=== PATIENT | female | born 1945 | race Caucasian/White ===

== ENCOUNTER 2022-07-10 06:41 | Outpatient (CLI) | payer MEDICARE, SELFPAY ==
[2022-07-10 07:11] VITALS: BP 171/88; PULSE 88; RESP 18; TEMP 36.1; O2SAT 96
[2022-07-10 07:40] VITALS: BP 181/99; PULSE 94; RESP 18; O2SAT 96
--- NOTE | 2022-07-10 07:41 | P.ORPRC_ITS ---
Procedure Note Date of procedure: 07/10/22 Procedure: SURGEON: Shine Stringer MD [employer] TECHNICIAN: Marichuy Sosa PA-C PREOPERATIVE DIAGNOSIS: Right hip abductor tendinopathy/greater trochanteric bursitis POSTOPERATIVE DIAGNOSIS: Right hip abductor tendinopathy/greater trochanteric bursitis NAME OF OPERATION: Percutaneous tenotomy ANESTHESIA: Local ESTIMATED BLOOD LOSS: 2 mL. COMPLICATIONS: None. SPECIMENS: None. DRAINS: None. PREOPERATIVE ANTIBIOTICS: None INDICATIONS: The patient is a 77-year-old with a history of right hip pain secondary to the above diagnoses. Despite appropriate non operative management, they continue to have symptoms. Operative intervention was recommended. The risks, benefits and expected outcomes were discussed in detail. These included but were not limited to: Infection, bleeding, injury to blood vessel or nerve, venous thromboembolism. All questions were answered to their satisfaction. PROCEDURE: The patient was placed in the lateral decubitus position. The right hip was imaged in the long and short axes with the ultrasound transducer. Normal acoustic landmarks were identified. We then sterilely prepped and draped the skin, and used a sterile probe cover with sterile gel. Local anesthesia was established with 10 mL of a solution containing 2 % lidocaine without epinephrine, 0.5% Marcaine without epinephrine and sodium bicarbonate. An 11 blade was used to incise the skin. The Tenex TX 2 micro tip was used to treat the abductor tendon for a total of 4 minutes and 4 seconds. The incision was Steri-Stripped closed. A dry dressing was applied. Sponge and needle counts were correct x2. The patient tolerated the procedure well. There were no apparent complications. They were discharged to home in satisfactory condition. PLAN: The patient may weightbear as tolerates. Tylenol can be used for pain/discomfort. They may ramp up activity as the hip will allow. They will follow up in the office in 6 weeks to assess their progress.
== END 2022-07-10 08:00 | disposition home or self-care (01) ==
PROVIDERS: PCP Internal Medicine; Visit Provider Orthopaedic Surgery
DX: M70.61 Trochanteric bursitis, right hip (principal); M76.891 Other specified enthesopathies of right lower limb, excluding foot
CPT/HCPCS: 27006; 76942; J3490

== ENCOUNTER 2023-06-02 13:45 | Outpatient (RCR) | payer MEDICARE, SELFPAY ==
--- NOTE | 2023-06-02 16:10 | OT.OPGNE2 ---
OT Outpatient General/Neuro Eval OT Outpatient General/Neuro Eval* Start: 06/02/23 15:50 Freq: Status: Active Protocol: Document 06/02/23 15:55 SMW (Rec: 06/02/23 16:04 SMW Laptop) E-signed By Carmella aRmirez OT OT Outpatient Evaluation Details Type Type Eval Complexity Low Insurance Information Insurance Information Insurance Information Medicare B Outpatient History/Precautions Medical/Functional History Medical History Reviewed Yes Prior Level of Function/Mobility Patient is independent in ADLs , IADLS and mobility without an AD. Social History Type of Dwelling Rambler Home Number of Floors (Floors) 1 Number of Stairs to Enter (Stairs) 2 Lives With: Children Physical Barriers in Home Environment Level, No Step Employment Status Retired Patient Subjective Subjective Patient Subjective I am ready to get this shoulder replaced. It hurts. Assessment Assessment Assessment The patient is a 77 year old female referred to outpatient OT for a RTSA pre-op scheduled for 06/09/23. The patient had a LTSA in October of 2020. The patient lives in her own home with her grandson and daughter currently. She is independent in ADLs, IADLS and mobility. She was educated on post op exercises, one handed ADL techniques, sling management and general TSA information. All questions were answered satisfactorily. Certification Certification Statement I Certify That: Therapy Services Provided, Therapy Plan Established, Therapy Plan Reviewed Certification Information Clinic ID # [id number] Initial Certification Date 06/02/23 Recertification Due Date 06/02/23 Provider Signature Shows Agreement With POC & Medical Necessity Physician Comment/Change Comment or Changes Physician NPI Number #
== END 2023-09-30 23:59 | disposition home or self-care (01) ==
PROVIDERS: PCP Internal Medicine; Visit Provider Orthopaedic Surgery
DX: M19.011 Primary osteoarthritis, right shoulder (principal); M75.101 Unspecified rotator cuff tear or rupture of right shoulder, not specified as traumatic; Z96.611 Presence of right artificial shoulder joint; Z51.89 Encounter for other specified aftercare
CPT/HCPCS: 97165

== ENCOUNTER 2023-06-09 07:37 | Inpatient (IN) | payer MEDICARE, SELFPAY ==
[2023-06-09] VITALS (23 sets, daily range): BP systolic 115–196; BP diastolic 69–106; PULSE 79–119; RESP 16–25; TEMP 36.1–36.7; O2SAT 84–97; BMI 38.7
--- OUTSIDE RECORDS SUMMARY | 2023-06-09 07:41 | XMS_ITS | Clinical Summary ---
Author Name Unknown Organization [facility] Address [place], [place] [address] Care Team Providers Care Senior Procurement Specialist Name Role Phone Jazlyn Torres MD Primary Care Provider [phone] Allergies Active Allergy Reactions Criticality Noted Date Comments Homeopathic Products Shortness Of Breath 2006 Theophylline Intolerance-Can't Take 02/26/2007 Medications Medication Sig Dispensed Refills Start Date End Date Status Inhalational Spacing Device (AEROCHAMBER)Indica tions:COPD (chronic obstructive pulmonary disease) with acute bronchitis (HC) As directed. For home use. 1 Device 0 1 Active albuterol HFA (PROAIR HFA) 90 mcg/actuation inhalerIndications: COPD (chronic obstructive pulmonary disease) with acute bronchitis (HC) Inhale 1-2 Puffs by mouth every 4 hours if needed. 1 Inhaler 11 8 Active albuterol (PROVENTIL) 0.083 % neb solutionIndications :Moderate persistent asthma, uncomplicated INHALE 1 VIAL IN NEBULIZER THREE TIMES DAILY 225 mL 3 1 Active acetaminophen-codei ne (TYLENOL #3) 300-30 mg per tabletIndications:C hronic cough TAKE 1 TABLET BY MOUTH EVERY 6 HOURS NEEDED . DO NOT EXCEED 1 PER 24 HOURS 90 Tablet 0 2 Active fluticasone fyq-kvcyfhgwhxho-bn lanterol (Trelegy Ellipta) 100-62.5-25 mcg inhalerIndications: COPD with chronic bronchitis Inhale 1 Puff by mouth once daily. 3 Each 3 2 Active atorvastatin (LIPITOR) 10 mg tabletIndications:M ixed hyperlipidemia Take 1 Tablet (10 mg) by mouth once daily. 90 Tablet 3 3 Active losartan-hydrochlor othiazide (HYZAAR) 100-12.5 mg tabletIndications:H TN (hypertension) Take 1 Tablet by mouth once daily. 90 Tablet 3 3 Active omeprazole (PRILOSEC) 40 mg Delayed-Release capsuleIndications: Gastroesophageal reflux disease, unspecified whether esophagitis present Take 1 Capsule (40 mg) by mouth once daily. 90 Capsule 3 3 Active codeine-guaiFENesin (ROBITUSSIN AC) 10-100 mg/5 mL liquidIndications:C hronic cough Take 5 mL by mouth every 4 hours if needed for Cough. Max dose 60 mL per 24 hrs. 240 mL 0 3 Active benzonatate (TESSALON) 100 mg capsuleIndications: Chronic cough Take 1 capsule by mouth three times daily as needed for cough 180 Capsule 3 3 Active traZODone (DESYREL) 100 mg tabletIndications:I nsomnia, unspecified type Take 1.5-2 Tablets (150-200 mg) by mouth at bedtime. 180 Tablet 1 3 Active venlafaxine extended release (VENLAFAXINE XR, BRAND-YOURSELF,) 150 mg extended release tabletIndications:R ecurrent major depression in partial remission (HC) Take 1 Tablet (150 mg) by mouth once daily with a meal. 90 Tablet 1 4 Active montelukast (SINGULAIR) 10 mg tabletIndications:C OPD (chronic obstructive pulmonary disease) with acute bronchitis (HC) Take 1 Tablet (10 mg) by mouth once daily. 90 Tablet 3 4 Active celecoxib (CELEBREX) 100 mg capsuleIndications: Osteoarthritis of both knees, unspecified osteoarthritis type Take 1 Capsule (100 mg) by mouth two times daily with meals. 180 Capsule 3 4 Active semaglutide (Ozempic) 1 mg/dose (4 mg/3 mL) penIndications:Pred iabetes Inject 1 mg subcutaneous once weekly. 3 mL 5 4 Active montelukast (SINGULAIR) 10 mg tabletIndications:C OPD (chronic obstructive pulmonary disease) with acute bronchitis (HC) Take 1 Tablet (10 mg) by mouth once daily. 90 Tablet 3 2 06/03/19 24 Discontinu ed(Reorder (E-cancel not sent)) celecoxib (CELEBREX) 100 mg capsuleIndications: Osteoarthritis of both knees, unspecified osteoarthritis type TAKE 1 CAPSULE BY MOUTH TWICE DAILY WITH MEALS 180 Capsule 0 3 06/03/19 24 Discontinu ed(Reorder (E-cancel not sent)) venlafaxine extended release (VENLAFAXINE XR, [employer] PHARMA,) 150 mg extended release tabletIndications:R ecurrent major depression in partial remission (HC) TAKE 1 TABLET BY MOUTH ONCE DAILY WITH A MEAL 90 Tablet 0 3 06/03/19 Discontinu ed(Reorder (E-cancel not sent)) semaglutide (OZEMPIC) 2 mg/3 mL penIndications:Pred iabetes Inject 0.375 mL (0.25 mg) subcutaneous once weekly for 28 days, THEN 0.75 mL (0.5 mg) once weekly for 28 days. 4.5 mL 0 3 05/13/19 Discontinu ed(*Medica tion adjustment ) semaglutide (Ozempic) 1 mg/dose (4 mg/3 mL) penIndications:Pred iabetes Inject 1 mg subcutaneous once weekly. 3 mL 4 05/15/19 Discontinu ed(*Availa bility/For mulary change/Cos t of medication ) semaglutide, weight loss, (Wegovy) 1 mg/0.5 mL penIndications:Clas s 2 severe obesity with serious comorbidity and body mass index (BMI) of 39.0 to 39.9 in adult, unspecified obesity type (HC) Inject 1 mg subcutaneous once weekly. 2 mL 11 4 06/03/19 Discontinu ed(*Medica tion adjustment ) Active Problems Problem Noted Date Diagnosed Date Obesity, morbid 08/21/2022 Chronic cough 07/04/2020 COPD with chronic bronchitis 07/04/2020 Overview: PFT 05/2019: Pre bronchodilator Spirometry: Post bronchodilator Spirometry: FVC 2.08 L (83 %) FVC 2.10 L (+0 % change from Pre) FEV1 1.25 L (67 %) FEV1 1.38 L (+10 % change from Pre) FEV1/FVC: 60 % FEV1/FVC: 65 % Umbilical hernia 07/04/2020 Prediabetes 06/05/2020 Controlled substance agreement signed 08/15/2019 Overview: Tylenol #3, #30/month for chronic cough Tubular adenoma of colon 06/15/2014 Major depression, recurrent 03/24/2011 Hypertension 07/23/2005 Primary osteoarthritis of left shoulder Resolved Problems Problem Noted Date Diagnosed Date Resolved Date Chronic bronchitis with prod uctive mucopurulent cough 08/15/2019 10/17/2020 COPD exacerbation 05/28/2019 06/03/2020 nursing home (current) use of anticoagulants 07/18/2010 06/03/2020 Moderate persistent asthma 0 10/18/2020 Encounters Date Type Department Care Team Description 06/03/2023 1:00 PM BRUSH WASHER Preop Visit [address] [place] [address] Jazlyn Torres MD Preoperative Exam (Right shoulder/06/09/23) 06/03/2023 Orders Only [address] [place] [address] 1 scan: (1-Ord) 06/03/2023 06/03/2023 Travel 05/20/[address] [address] Jazlyn Torres MD Prior Authorization (semaglutide, weight loss, (Wegovy) 1 mg/0.5 mL pen EXCLUDED) 05/14/[address] [place] [address] Jazlyn Torres MD Prior Authorization (semaglutide (Ozempic) 1 mg/dose (4 mg/3 mL) pen (not covered)) 05/08/2023 [address] [place] [address] Jazlyn Torres MD Refill Request (semaglutide (OZEMPIC) 2 mg/3 mL pen) 05/06/2023 Refill [facility] [address] [facility] [place] [address] Jazlyn Torres MD Refill Request (Ozempic (0.25 and 0.5) 2mg/3ml pen) 04/15/2023 Transcribe Orders [facility] [place] [address] Building [facility] [address] [place] [address] Shine Stringer MD 03/23/2023 8:50 AM BRUSH WASHER Office Visit [address] [place] [address] Jazlyn Torres MD Sleep Problem; Flu Shot; Immunization/Injectio n 03/23/20[address] [facility] [place] [address] Jazlyn Torres MD Medication Management (Pharmacy Clarification - Ozempic) 03/23/2023 Travel 03/17/2023 Orders Only [facility] Scanner 1 scan: (1-Ord) LIZET[facility]ERTSON PERIPHERAL ARTERY DISEASE TEST, 03/17/2023 03/12/2023 3:09 PM CDT - 03/12/2023 11:59 PM CDT Hospital Encounter [facility] [address] [facility] [place] [address] Shine Stringer MD Tear of right rotator cuff, unspecified tear extent, unspecified whether traumatic 03/12/2023 Travel 03/11/2023 Refill [facility] [address] [facility] [place] [address] Jazlyn Torres MD Refill Request (Celecoxib, Venlafaxine Extended Release) from Last 3 Months Immunizations Name Administration Dates Next Due COVID-19 vaccine (TapImmune-Bio NTech 30mcg/0.3mL) [place] 06/28/2021,07/14/2020,06/23/2020 Influenza, High-dose Inactivated 03/31/2016,06/2014,03/30/2014 Influenza, IIV3 (Age >=3 years) 02/29/20 13,02/27/2011,03/26/2010,2007,02/17/2007 Influenza, Inactivated AIIV4 (Age 65+ Years) Preserv Free 03/23/2023,02/10/2022,04/23/2021,2019 Influenza, Inactivated IIV3 (Age 65+ Years) Preserv Free 03/16/2019,02/23/2018,04/06/2017 Pneumococcal Poly,23-Valent (Pneumovax) 04/22/2011,03/04/2002,12/17/1992 Pneumococcal conj 13-Valent (Prevnar 13) 02/09/2015 Td (Age >=7 Years) 02/09/2004 Tdap 09/15/2016 Family History Medical History Relation Name Comments Cancer Brother 2 MELANOMA Good Health Daughter 1 Good Health Daughter 2 Cancer Father LUNG Asthma Mother EMPHYSEMA Cancer-breast No Family History Relation Name Status Comments Brother 1 Brother 2 Brother 3 Alive Daughter 1 Alive Daughter 2 Alive Father Maternal Grandfather Maternal Grandmother Mother Paternal Grandfather Paternal Grandmother Sister Social History Tobacco Use Types Packs/Day Years Used Date Smoking Tobacco: Former Cigarettes Q uit: 08/09/1984 Smokeless Tobacco: Never Tobacco Cessation:Counseling Given: Yes Alcohol Use Standard Drinks/Week Comments Yes 0 (1 standard drink = 0.6 oz pure alcohol) OCCASIONAL twice a month glass of wine PHQ-2 Answer Date Recorded PHQ-2 TOTAL SCORE 0 08/20/2022 Social Connections Answer Date Recorded Frequency of Communication with Friends and Fami ly 0 08/20/2022 Financial Resource Strain Answer Date R ecorded Difficulty of Paying Living Expenses 3 08/20/2022 Difficulty of Paying Living Expenses Not on file 08/20/2022 Food Insecurity Answer Date Recorded Worried About Running Out of Food in the Last Ye ar 1 08/20/2022 Transportation Needs Answer Date Record ed Lack of Transportation (Medical) 1 08/20/2022 Housing Stability Answer Date Recorded Unable to Pay for Housing in the Last Year 1 08/20/2022 Sex and Gender Information Value Date Recorded Sex Assigned at Not on file Gender Identity Not on file Sexual Orientation Not on file Obstetrics History Para Term AB IAB SAB Ectopic Multiple Livin g Live Births 2 2 2 Date Outcome GA Total Labor Labor/2nd/3rd Weight Sex Delivery Anes PTL Honey A1 A5 Name Cl in Para Para Last Filed Vital Signs Vital Sign Reading Time Taken Comments Blood Pressure 128/80 06/03/2023 1:03 PM BRUSH WASHER Pulse 77 06/03/2023 1:03 PM BRUSH WASHER Temperature 36.7 ??C (98 ??F) 09/15/2022 1:02 PM CDT Respiratory Rate 18 09/15/2018 11:25 AM CDT Oxygen Saturation 98% 06/03/2023 1:03 PM BRUSH WASHER Inhaled Oxygen Concentration - - Weight 87.1 kg (192 lb) 06/03/2023 1:03 PM BRUSH WASHER Height 150.5 cm (4' 11.25) 06/03/2023 1:[address] Body Mass Index 38.45 06/03/2023 1:03 PM BRUSH WASHER Plan of Treatment Upcoming Encounters Date Type Department Care Team (Late st Contact Info) Description 06/24/2023 2:00 PM BRUSH WASHER Appointment [address] [address] 06/29/2023 1:45 PM BRUSH WASHER Appointment [address] [address] Raina Brizuela, [facility] [address] [place] [address] 07/01/2023 2:15 PM BRUSH WASHER Appointment [address] [address] 07/06/2023 2:00 PM BRUSH WASHER Appointment [address] [address] 07/08/2023 12:30 PM BRUSH WASHER Telemedicine [facility] Andi Gutiérrez Yves [address] [place] [phone] Rangel Padilla, [employer] TE[employer] [address] [place] [id number] 07/08/2023 2:00 PM BRUSH WASHER Appointment [facility] - [address] [place] [address] Health Maintenance Due Date Last Done Comments Zoster (shingles) series for age 50+ (1 of 2) 1994 COVID-19 vaccine series (2022- season) 2023 03/12/2022, 06/28/2021, 07/14/2020, Additional history exists Medicare Wellness for age 65+ 08/20/2023, 08/14/2021, 03/16/2019, Additional history exists Depression screening for age 12+ 08/21/2023 08/20/2022, 08/14/2021, 06/05/2020, Additional history exists BMI (ht and wt on same day) for age 18+ 06/03/2024 06/03/2023, 08/20/2022, 08/14/2021, Additional history exists Tetanus booster 09/15/2026 09/15/2016, 02/09/2004 DEXA/DXA scan for age 65+ Completed 04/22/2011 Pneumococcal series for age 65+ Completed 02/09/2015, 02/09/2015, 04/22/2011, Additional history exists Tdap Completed 09/15/2016 Hepatitis C screening for ag e 18-79 Completed 10/23/2016 Influenza for age 65+ Completed 03/23/2023 , 02/10/2022, 04/23/2021, Additional history exists Procedures Procedure Name Priority Date/Time Associated Diagnosis Comments CBC W PLT NO DIFF Routine 06/03/2023 1:4 4 PM BRUSH WASHER Fatigue, unspecified type BASIC METABOLIC PANEL Routine 06/03/2023 1:44 PM BRUSH WASHER Hypertension EKG 12 LEAD Routine 06/03/2023 12:00 AM BRUSH WASHER Hypertension TSH Routine 03/23/2023 9:57 AM BRUSH WASHER Weight gain HEMOGLOBIN A1C SCREENING Routine 03/23/2023 9:57 AM BRUSH WASHER Prediabetes SCAN-DIAGNOSTIC REPORT 03/17/2023 12:00 AM BRUSH WASHER MR SHOULDER RIGHT WO Routine 03/12/2023 4:19 PM CDT Tear of right rotator cuff, unspecified tear extent, unspecified whether traumatic from Last 3 Months Results * CBC W PLT NO DIFF (06/03/2023 1:44 PM BRUSH WASHER) WHITE BLOOD COUNT 4.7 4.5 - 11.0 thou/cu mm 06/03/2023 1:54 PM [facility] RED BLOOD COUNT 4.50 4.00 - 5.20 mil/cu mm 06/03/2023 1:54 PM [facility] HEMOGLOBIN 13.5 12.0 - 16.0 g/dL 06/03/2023 1:54 PM [facility] HEMATOCRIT 41.7 33.0 - 51.0 % 06/03/2023 1:54 PM [facility] MCV 93 80 - 100 fL 06/03/2023 1:54 PM [facility] MCH 30.0 26.0 - 34.0 pg 06/03/2023 1:54 PM [facility] MCHC 32.4 32.0 - 36.0 g/dL 06/03/2023 1:54 PM [facility] RDW 13.4 11.5 - 15.5 % 06/03/2023 1:54 PM [facility] PLATELET COUNT 160 140 - 440 thou/cu mm 06/03/2023 1:54 PM [facility] MPV 9.4 6.5 - 11.0 fL 06/03/2023 1:54 PM [facility] Blood BLOOD SPECIMEN / Unknown Venipuncture / Unknown 06/03/2023 1:44 PM BRUSH WASHER 06/03/2023 1:44 PM BRUSH WASHER Jazlyn Torres MD HEMATOLOGY [facility] [address] [place] [address] * (ABNORMAL) BASIC METABOLIC PANEL (06/03/2023 1:44 PM BRUSH WASHER) SODIUM 138 136 - 145 mmol/L 06/03/2023 2:10 PM [facility] POTASSIUM 4.3 3.5 - 5.1 mmol/L 06/03/2023 2:10 PM [facility] CHLORIDE 102 98 - 107 mmol/L 06/03/2023 2:10 PM [facility] CO2,TOTAL 29 22 - 29 mmol/L 06/03/2023 2:10 PM [facility] ANION GAP 7 5 - 18 06/03/2023 2:10 PM [facility] GLUCOSE 107(H) 70 - 99 mg/dL 06/03/2023 2:10 PM [facility] CALCIUM 9.8 8.8 - 10.2 mg/dL 06/03/2023 2:10 PM [facility] BUN 20 8 - 23 mg/dL 06/03/2023 2:10 PM [facility] CREATININE 1.05(H) 0.50 - 0.90 mg/dL 06/03/2023 2:10 PM [facility] BUN/CREAT RATIO 19 10 - 20 2:10 PM [facility] eGFR 54(L) >90 mL/min/1.7 3m2 06/03/2023 2:10 PM [facility] Comment:As of 2021, eG FR is calculated by the CKD-EPI creatinine equation without race adjustment. ??eGFR can be influenced by muscle mass, exercise, and diet. ??The reported eGFR is an estimation only and is only applicable if the renal function is stable. Blood BLOOD SPECIMEN / Unknown Venipuncture / Unknown 06/03/2023 1:44 PM BRUSH WASHER 06/03/2023 1:44 PM BRUSH WASHER Jazlyn Torres MD CHEMISTRY [facility] [address] [facility] [place] [address] * EKG 12 LEAD (06/03/2023 12:00 AM BRUSH WASHER) Jazlyn Torres MD EKG ORD * HEMOGLOBIN A1C SCREENING (03/23/2023 9:57 AM BRUSH WASHER) HEMOGLOBIN A1C SCREENING 6.2 <=6.4 % 03/23/2023 10:12 AM BRUSH WASHER [facility] Blood BLOOD SPECIMEN / Unknown Venipuncture / Unknown 03/23/2023 9:57 AM BRUSH WASHER 03/23/2023 9:59 AM BRUSH WASHER [facility] - 03/23/2023 10:12 AM BRUSH WASHER ? (<5.7%) ?Normal ? (5.7% to 6.4%) ? Indicates prediabetes ? (>=6.5%) ? Confirms diabetes Falsely low levels may be seen with: Recent Transfusion, Recent Significant Blood Loss, Hemolytic Diseases, or Falsely elevated levels may be seen with: Untreated Anemias, Splenectomy Jazlyn Torres MD CHEMISTRY [facility] [address] [place] [address] * TSH (03/23/2023 9:57 AM BRUSH WASHER) TSH 2.81 0.27 - 4.20 uIU/mL 03/23/2023 10:30 AM BRUSH WASHER [facility] Blood BLOOD SPECIMEN / Unknown Venipuncture / Unknown 03/23/2023 9:57 AM BRUSH WASHER 03/23/2023 9:59 AM BRUSH WASHER [facility] - 03/23/2023 10:30 AM BRUSH WASHER In Adults, TSH values between 5.00 and 10.00 uIU/ml do not necessarily indicate the presence of Hypothyroidism. Correlation with clinical findings such as presence of goiter and/or Thyroperoxidase (TPO) Antibody may be helpful. For more information please refer to LINDEN 2004; 291: 228-238. Jazlyn Torres MD CHEMISTRY [facility] [address] [place] [address] * SCAN-DIAGNOSTIC REPORT (03/17/2023 12:00 AM BRUSH WASHER) Scanner OTHER * MR SHOULDER RIGHT WO (03/12/2023 4:19 PM CDT) Anatomical Region Laterality Modality SHOULDER R Magnetic Resonan ce 03/13/2023 9:43 AM CDT Impressions 03/13/2023 9:43 AM CDT 1. Large full-thickness rotator cuff tear involving all of the supraspinatus and infraspinatus tendons with severe atrophy and retraction. 2. Advanced degenerative arthritic change of the shoulder joint with degenerative tearing of all portions of the glenoid labrum. There is severe tendinosis of the biceps anchor without disruption. Dictated by Peter Weeks MD @ 03/13/2023 9:43:24 AM (Electronically Signed) Narrative 03/13/2023 9:43 AM CDT For Patients: ??As a result of the Century Cures Act, medical imaging exams and procedure reports are released immediately into your electronic medical record. ??You may view this report before your referring provider. ??If you have questions, please contact your health care provider. HISTORY: Right shoulder pain. TECHNIQUE: Routine shoulder protocol. FINDINGS: Study is limited due to significant motion artifact on all sequences. There is an extensive full-thickness rotator cuff tear involving all of the supraspinatus and infraspinatus tendons with severe atrophy and retraction. There is moderate tendinosis and moderate thinning of the subscapularis tendon. The teres minor is intact. Acromioclavicular joint region: Moderate degenerative change is present. There is a concave, type 2 acromial undersurface. Biceps labral complex and glenohumeral joint: Severe osteoarthritic change is noted with high-grade articular cartilage loss, osteophytes and degenerative cysts. There is diffuse degeneration of the glenoid labrum especially involving the superior labrum where there is fragmentation. There is severe tendinosis of the biceps anchor without disruption or displacement. There is a mild shoulder joint effusion present. Bones and soft tissues: No findings for fracture or tumor. Severe atrophy of the supraspinatus and infraspinatus muscle bellies is noted. Procedure Note Dakota Weeks MD - 03/13/2023 For Patients: As a result of the Cures Act, medical imagingexams and procedure reports are released immediately into your electronicmedical record. You may view this report before your referring provider.If you have questions, please contact your health care provider. HISTORY: Right shoulder pain. TECHNIQUE: Routine shoulder protocol. FINDINGS: Study is limited due to significant motion artifact on all sequences. There is an extensive full-thickness rotator cuff tear involving all ofthe supraspinatus and infraspinatus tendons with severe atrophy andretraction. There is moderate tendinosis and moderate thinning of thesubscapularis tendon. The teres minor is intact. Acromioclavicular joint region: Moderate degenerative change is present.There is a concave, type 2 acromial undersurface. Biceps labral complex and glenohumeral joint: Severe osteoarthritic changeis noted with high-grade articular cartilage loss, osteophytes anddegenerative cysts. There is diffuse degeneration of the glenoid labrumespecially involving the superior labrum where there is fragmentation.There is severe tendinosis of the biceps anchor without disruption ordisplacement. There is a mild shoulder joint effusion present. Bones and soft tissues: No findings for fracture or tumor. Severe atrophyof the supraspinatus and infraspinatus muscle bellies is noted. IMPRESSION: 1. Large full-thickness rotator cuff tear involving all of thesupraspinatus and infraspinatus tendons with severe atrophy andretraction. 2. Advanced degenerative arthritic change of the shoulder joint withdegenerative tearing of all portions of the glenoid labrum. There issevere tendinosis of the biceps anchor without disruption. Dictated by Peter Weeks MD @ 03/13/2023 9:43:24 AM (Electronically Signed) Shine Stringer MD MR from Last 3 Months Advance Directives Documents on File Type Date Recorded Patient Tower Climber Expl anation Healthcare Directive 10/31/2005 10:04 AM M N HEALTH CARE DIRECTIVE, 10/31/2005 Care Teams Senior Procurement Specialist Relationship Specialty Start Date End Date Jazlyn Torres MD [address] [facility] [place] [address] PCP - General Internal Medicine 06/05/20
--- OUTSIDE RECORDS SUMMARY | 2023-06-09 07:41 | XMS_ITS | Clinical Summary ---
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 0 Active Tiotropium [place] Monohydrate (SPIRIVA HANDIHALER IN) Inhale 2 Puffs into the lungs. 0 Active Ipratropium [place] (ATROVENT IN) Inhale into the lungs as needed. 0 Active albuterol (PROVENTIL, VENTOLIN) (2.5 MG/3ML) 0.083% nebulizer solution Take by nebulization. 0 Active omeprazole (PRILOSEC) 40 MG delayed-release capsule Take 40 mg by mouth two times a day before meals. Take before meals. Do not crush. 0 Active losartan-hydrochloroth iazide (HYZAAR) 50-12.5 MG oral tablet Take 1 Tab by mouth. 0 Active TRAZODONE HCL OR Take 150 mg by mouth. 0 Active benzonatate (TESSALON) 100 MG capsule Take 100 mg by mouth two times a day. Swallow capsule whole (do not break or chew). 0 Active montelukast (SINGULAIR) 10 MG tablet Take 10 mg by mouth. 0 Active celecoxib (CELEBREX) 100 MG capsule Take 100 mg by mouth. 0 Active losartan (COZAAR) 50 MG tablet Take 50 mg by mouth one time a day. 0 Active DOXYCYCLINE HYCLATE 100 MG Recon Soln Inject 100 mg into the vein one time. 0 Active nitrofurantoin, macrocrystal-monohydra te, (MACROBID) 100 MG capsule Take 1 Cap by mouth two times a day with meals. 14 Cap 0 12/22/2016 Active Immunizations Name Administration Dates Next Due Tdap (7 years and older) 09/15/2016 Social History Tobacco Use Types Packs/Day Years Used Date Smoking Tobacco: Never Assessed Sex and Gender Information Value Date Recorded Sex Assigned at Not on file Gender Identity Not on file Sexual Orientation Not on file Last Filed Vital Signs Vital Sign Reading Time Taken Comments Blood Pressure 159/93 12/20/2016 1:39 PM CDT Pulse 95 12/20/2016 1:39 PM CDT Temperature 37.1 ??C (98.8 ??F) 12/20/2016 1:39 PM CD T Respiratory Rate 20 12/20/2016 1:39 PM CDT Oxygen Saturation 95% 12/20/2016 1:39 PM CDT Inhaled Oxygen Concentration - - Weight 88.5 kg (195 lb) 12/20/2016 1:39 PM CDT Height 152.4 cm (5') 12/20/2016 1:39 PM CDT Body Mass Index 38.08 12/20/2016 1:39 PM CDT Plan of Treatment Not on file
[2023-06-09] MEDS: LACTATED RINGERS 1000 ML 1,000 ML 100 ML IV ×2 (07:50→09:26)
[2023-06-09] MEDS: ACETAMINOPHEN 500 MG TABLET 1000 MG PO ×3 (08:40→21:12)
[2023-06-09] MEDS: fentaNYL 100 MCG/2 ML inj IVP (08:40)
[2023-06-09] MEDS: OXYCODONE (CR) 10 MG TAB.ER.12H PO (08:40)
[2023-06-09] MEDS: CELECOXIB 200 MG CAPSULE PO (08:40)
[2023-06-09] MEDS: MIDAZOLAM HCL 1 MG/ML inj IVP (08:45)
--- NOTE | 2023-06-09 08:59 | SUR.PREOP ---
TIME?OUT:?0844 PT/RN/MDA?VERIFICATION?OF?SURGICAL?SITE,?PROCEDURE,?AND?CONSENT OBTAINED?PRIOR?TO?INVASIVE?PROCEDURE.
--- NOTE | 2023-06-09 09:17 | W.ANESCHARGE ---
Anesthesia Charges Start Date/Time Anesthesia Start Date: 06/09/23 Anesthesia Start Time: 08:58 Stop Date/Time Anesthesia Stop Date: 06/09/23 Anesthesia Stop Time: 11:24 Summary Extremes of Age - Over 70 or under 1: MDA
--- NOTE | 2023-06-09 09:17 | W.PM.NB ---
Nerve Block Nerve Block Time Seen by Provider: 08:46 Date Seen: 06/09/23 Type of block requested by surgeon for post-operative analgesia: supraclavicular Side: right Time out performed: Yes Verification of patient name: Yes Verification of date of : Yes Site marking: site marked Name of person performing procedure: Beau Assistants, if any: Guero Continuous monitoring Was continuous monitoring of O2 sat, B/P, cardiac nurse specialist, recorded every 15 minutes?: Yes Procedure Checklist: sterile prep, needles and gloves Ultrasound guided. Images saved: Yes Medications given in 5ml increments after negative aspiration: Ropivicaine %: 0.5 mL: 20 Needle gauge: 22 Decadron (mg): 10 Precedex (mcg): 25 Patient tolerated procedure well: Yes Block Charges Block Charge (with Pro Fee): Brachial Plexus Use of Ultrasound Machine for Block: Yes- US Guidance/pain block
[2023-06-09] MEDS: CEFAZOLIN 2 GM INJ IVP (09:20)
[2023-06-09] MEDS: TRANEXAMIC ACID 100 MG/ML INJ 1000 MG IV (09:20)
--- NOTE | 2023-06-09 10:44 | CRLHL7_ITS ---
For Patients: As a result of the Cures Act, medical imaging exams and procedure reports are released immediately into your electronic medical record. You may view this report before your referring provider. If you have questions, please contact your health care provider. INDICATION: Post right shoulder arthroplasty. TECHNIQUE: Two portable views of the right shoulder. COMPARISON: None. FINDINGS: Immediate postop changes of right shoulder arthroplasty. Prosthetic components well-seated and aligned. IMPRESSION: Immediate postop changes of right shoulder arthroplasty without evidence of complication. Dictated by Florentin Aguilar MD @ 06/09/2023 3:13:53 PM (Electronically Signed)
--- NOTE | 2023-06-09 10:46 | P.ORPRC_ITS ---
Procedure Note Date of procedure: 06/09/23 Procedure: PREOPERATIVE DIAGNOSIS: Right shoulder rotator cuff tear arthropathy POSTOPERATIVE DIAGNOSIS: Right shoulder rotator cuff tear arthropathy NAME OF OPERATION: Right upper extremity reverse shoulder arthroplasty SURGEON: Shine Stringer MD PROVIDER RELATIONS COORDINATOR: Marichuy Sosa PA-C, SADA Crowe ANESTHESIA: General endotracheal ESTIMATED BLOOD LOSS: 50 mL COMPLICATIONS: None SPECIMENS: None DRAINS: None PREOPERATIVE ANTIBIOTICS: Ancef 2 grams IMPLANTS: 1. Tornier 25mm x 30mm baseplate 2. 36mm standard glenosphere 3. 4B humeral stem 4. Low eccentric +0 humeral tray 5. 36mm +6 polyethylene INDICATIONS: The patient is a 77-year-old with a longstanding history of severe, unrelenting right shoulder pain secondary to rotator cuff tear arthropathy. Despite appropriate nonoperative management, including activity modification, anti-inflammatories, [id number] pain medication, physical therapy, and injections they continue to have pain and disability. Operative intervention was offered. The risks, benefits and expected outcomes were discussed in detail. These included but were not limited to: Infection, bleeding, injury to blood vessel or nerve, venous thromboembolism. All questions were answered to their satisfaction. Use of an compounding assistant was necessary throughout the case for patient positioning and safety, soft tissue retraction, and closure. PROCEDURE: General anesthesia was administered. The patient was placed in the lazy beach chair position on the operating room table. The right upper extremity was prepped and draped in the usual sterile fashion. A standard deltopectoral incision was made. Subcutaneous dissection was taken with electrocautery to the deltopectoral interval. The cephalic vein was mobilized, lateral branches were cauterized. The vein was taken medially with the pectoralis. We bluntly entered the deltopectoral interval. We freed up the deltoid. The upper 1/3 of the insertion of the pectoralis was divided with cautery. The static retractor was placed. The clavipectoral fascia and CA ligament were divided. The circumflex vessels were controlled with electrocautery. The biceps was dissected out of the bicipital groove, was tagged with a #2 FiberWire suture and divided proximally. Two fiberWire sutures were placed in the subscapularis. The subscap was subperiosteally elevated off of the lesser tuberosity. The humeral head was delivered into the wound. The intramedullary humeral cutting guide was placed. We made the cut at the anatomic neck, in 30? of retroversion. Humeral sounds were used to assess the diameter of the canal. The broach was placed and had good rotational stability. The calcar reamer was used and the protective base plate cover was placed. Attention was then turned to the glenoid. Hohmann retractors were placed po steriorly. The labrum and biceps stump were sharply debrided. The origin of the inferior glenohumeral ligaments were subperiosteally released off of the glenoid. The drill guide was placed. The guide pin was placed in 0? of cephalic tilt. The reamer was used to bleeding bone. The central drill was used x2. The tap was used. The standard base plate was placed. This had excellent purchase. L ocking screws were placed. The glenosphere was placed, the set screw was tightened. Attention then returned to the humerus. We placed a low eccentric standard base plate and standard poly. We reduced the shoulder and took it through a range of motion. It was found to be stable with appropriate soft tissue tension. Trial humeral components were removed. The biceps was tenodesed in the bicipital groove with drill holes and our previously placed FiberWire suture. We placed #2 FiberWire sutures in the lesser tuberosity for subsequent subscap repair. We assembled the humeral component on the back table. We placed it in the center of our subscapularis repair sutures and tapped it down to our humeral cut. This had excellent purchase. The shoulder was reduced and again was found to be stab le with appropriate soft tissue tension. We did a 3 min dilute Betadine solution soak. We irrigated the wound with 3 L of normal saline via pulse lavage. We repaired the subscapularis to the lesser tuberosity with our previously placed FiberWire sutures. The deltopectoral interval was loosely reapproximated with an 0 Vicryl in an interrupted [id number] fashion. Subcutaneous tissues were closed with the 2-0 Vicryl and a running 3-0 Monocryl suture. The skin was sealed with glue. A dry dressing and sling were applied. Sponge and needle counts were correct x2. The patient tolerated the procedure well, there were no apparent complications. They were awakened and extubated in the operating room, taken to the postanesthesia care unit in satisfactory condition. PLAN: The patient will be mobilized with physical therapy. The sling will be used for 6 weeks postoperatively. Active range of motion in forward flexion and abduction as tolerates. No external rotation greater than 0? for 6 weeks postoperatively. They will be discharged to home once medically appropriate.
--- NOTE | 2023-06-09 13:27 | W.ANESCHARGE ---
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
[2023-06-09] MEDS: LACTATED RINGERS 1000 ML 1,000 ML 75 ML IV (13:45)
[2023-06-09] MEDS: CEFAZOLIN 2 GM in 0.9 % SODIUM CHLORIDE Mini-bag 100 ML IVPB (17:55)
[2023-06-09] MEDS: OXYCODONE 5 MG TABLET PO (21:06)
[2023-06-09] MEDS: SENNOSIDES 1 TAB TABLET 2 TAB PO (21:06)
[2023-06-09] MEDS: MONTELUKAST 10 MG TABLET PO (21:07)
[2023-06-09] MEDS: ATORVASTATIN 10 MG TABLET PO (21:07)
--- NOTE | 2023-06-09 23:17 | PM.IMCN1 ---
Date of Consult Patient: Chaim Patient Consult date: 06/09/23 Requesting Physician: Orthopedics Primary Care Provider: Jazlyn Torres MD Consult Narrative Reason for consult: s/p right reverse total shoulder arthroplasty, medical care Narrative: Valery Garcia is a 77 year old woman undergoes elective right reverse total shoulder arthroplasty today due to severe symptomatic arthritis. Estimated blood loss 50 mL. No apparent complications. I reviewed the preoperative assessment. She has not had any problems or complications since then. Review of Systems Status of ROS: Reports: 10 or more systems reviewed and unremarkable except as noted in History and below PFSH PFS Medical History (Updated 06/09/23 @ 23:22 by Stuart Johnson MD) Depression ?F32.A - Depression, unspecified (ICD-10) Skin problem ?L98.9 - Disorder of the skin and subcutaneous tissue, unspecified (ICD-10) Arthritis ?M19.90 - Unspecified osteoarthritis, unspecified site (ICD-10) Incontinence of urine ?R32 - Unspecified urinary incontinence (ICD-10) GERD (gastroesophageal reflux disease) ?K21.9 - Gastro-esophageal reflux disease without esophagitis (ICD-10) Elevated cholesterol ?E78.00 - Pure hypercholesterolemia, unspecified (ICD-10) High blood pressure ?I10 - Essential (primary) hypertension (ICD-10) Sleep apnea ?G47.30 - Sleep apnea, unspecified (ICD-10) COPD (chronic obstructive pulmonary disease) ?J44.9 - Chronic obstructive pulmonary disease, unspecified (ICD-10) Asthma ?J45.909 - Unspecified asthma, uncomplicated (ICD-10) Surgical History (Updated 06/09/23 @ 23:22 by Stuart Johnson MD) History of Tara fundoplication ?Z98.890 - Other specified postprocedural states (ICD-10) History of carpal tunnel surgery of right wrist ?Z98.890 - Other specified postprocedural states (ICD-10) Status post hip surgery (07/10/22) ?Z98.890 - Other specified postprocedural states (ICD-10) S/P left knee arthroscopy (10/19/96) ?Z98.890 - Other specified postprocedural states (ICD-10) History of arthroscopy of left shoulder (03/28/99) ?Z98.890 - Other specified postprocedural states (ICD-10) Status post total left knee replacement (11/05/05) ?Z96.652 - Presence of left artificial knee joint (ICD-10) S/P right knee arthroscopy (08/16/02) ?Z98.890 - Other specified postprocedural states (ICD-10) Status post total right knee replacement (07/16/10) ?Z96.651 - Presence of right artificial knee joint (ICD-10) History of carpal tunnel surgery of left wrist (06/27/14) ?Z98.890 - Other specified postprocedural states (ICD-10) History of breast biopsy ?Z98.890 - Other specified postprocedural states (ICD-10) 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) ?Z96.612 - Presence of left artificial shoulder joint (ICD-10) Family History Brother Diabetes Heart problem High blood pressure Mother COPD (chronic obstructive pulmonary disease) Social History Narrative: Marital Status: Occupation: retired [employer] Alcohol Use: Yes (once a week) Recreational Drug Use: No What is your current living situation?: I presently have a place to live Problems where you live: no known problems Problems where you live details: none In the past 12 months, utilities in danger of being shut off: no In past 12 months, lack of transportation kept you from medical appts, meetings, work, or getting things needed for daily living: no In the past 12 mos, have been you worried that your food would run out before you had money to buy more?: never true In the past 12 mos, the food you bought just didn't last and you didn't have money to buy more?: never true Smoking Status: Former smoker What tobacco products do you use: cigarettes Smoking quit date/years: >15 years ago Do you use any of these nicotine containing products: None Second hand tobacco smoke exposure: No How often do you have a drink containing alcohol: monthly or less Alcohol type: beer How many standard drinks containing alcohol do you have on a typical day: 1 or 2 How often do you have six or more drinks on one occasion: Never AUDIT-C Alcohol total score: 1 Non-prescribed substance use: denies use Caffeine: Yes How often does anyone, including family, friends and others, physically hurt you: never How often does anyone, including family, friends and others, insult or talk down to you: never How often does anyone, including family, friends and others, threaten you with harm: never How often does anyone, including family, friends and others, scream or curse at you: never service: No Meds Home Medications and Allergies Home Medications Medication Instructions Recorded Confirmed Type albuterol 90 mcg/actuation aerosol 2 spray inhalation Q4H PRN 12/04/21 06/09/23 History inhaler atorvastatin 10 mg tablet 10 mg PO .Bedtime 12/04/21 06/09/23 History benzonatate 100 mg capsule 100 mg PO Q8H PRN 12/04/21 06/09/23 History celecoxib 100 mg capsule 100 mg PO BID 12/04/21 06/09/23 History fluticasone fur. 100 mcg-umeclid 1 inh inhalation DAILY 12/04/21 06/09/23 History 62.5 mcg-vilant 25 mcg inhalat.powder losartan 100 1 tab PO DAILY 12/04/21 06/09/23 History mg-hydrochlorothiazide 12.5 mg tablet montelukast 10 mg tablet 10 mg PO .Bedtime 12/04/21 06/09/23 History omeprazole 40 mg capsule,delayed 40 mg PO DAILY 12/04/21 06/09/23 History release trazodone 100 mg tablet 150 - 200 mg PO .Bedtime 12/04/21 06/09/23 History venlafaxine 150 mg tablet,extended 150 mg PO DAILY 12/04/21 06/09/23 History release 24 hr acetaminophen 500 mg oral powder 500 mg PO Q6H PRN 08/20/22 06/09/23 History packet (Tylenol Extra Strength) semaglutide 1 mg/dose (4 mg/3 mL) 1 mg subcut QWEEK 06/09/23 06/09/23 History subcutaneous pen injector (Ozempic) Allergies Allergy/AdvReac Type Severity Reaction Status Date / Time theophylline Allergy Severe Nausea Verified 06/09/23 07:57 environmental Allergy Unknown Uncoded 03/18/23 10:54 HOMEOPATHIC PRODUCTS Allergy Unknown Uncoded 03/18/23 10:54 Exam Narrative: Exam Narrative: I examined the patient in her hospital room. Appears comfortable no acute distress. Vision and hearing are adequate. Alert, oriented to self, place, time, situation. From the, articulate, cooperative. Lungs are clear to auscultation. Heart tones with regular rhythm. Abdomen with active bowel sounds, soft, nontender. Already moves her fingers on the affected right side. No focal motor neurologic deficits. Const: Vital Signs, click to edit/add: Vital Signs - 24 hr 06/09/23 08:40 06/09/23 08:45 06/09/23 08:50 Temperature 98.0 F Pulse Rate 79 79 81 Pulse Rate [Pulse Oximeter] Respiratory Rate 16 16 16 Blood Pressure 177/89 H 177/90 H 165/77 H Blood Pressure [Le ft Arm] Pulse Oximetry 95 95 92 Oxygen Delivery Me thod Room Air Nasal Cannula Nasal Cannula Oxygen Flow Rate 2 2 06/09/23 11:20 06/09/23 11:25 06/09/23 11:30 Temperature 97.2 F L Pulse Rate 118 H 117 H 119 H Pulse Rate [Pulse Oximeter] Respiratory Rate 20 22 25 H Blood Pressure 115/86 165/85 H 168/95 H Blood Pressure [Le ft Arm] Pulse Oximetry 95 95 93 Oxygen Delivery Me thod Nasal Cannula Oxygen Flow Rate 3 06/09/23 11:35 06/09/23 11:40 06/09/23 11:45 Temperature Pulse Rate 113 H 109 H 112 H Pulse Rate [Pulse Oximeter] Respiratory Rate 18 18 18 Blood Pressure 182/89 H 157/95 H 151/71 H Blood Pressure [Le ft Arm] Pulse Oximetry 94 94 94 Oxygen Delivery Me thod Oxygen Flow Rate 06/09/23 11:50 06/09/23 11:55 06/09/23 11:55 Temperature 97.3 F L 97.0 F L 97.0 F L Pulse Rate 112 H 110 H Pulse Rate [Pulse Oximeter] 104 H Respiratory Rate 20 18 18 Blood Pressure 162/69 H Blood Pressure [Le ft Arm] 154/89 H 154/89 H Pulse Oximetry 93 93 Oxygen Delivery Me thod Nasal Cannula Room Air Room Air Oxygen Flow Rate 3 06/09/23 12:19 06/09/23 12:30 06/09/23 12:46 Temperature 97.0 F L 97.0 F L Pulse Rate Pulse Rate [Pulse Oximeter] 105 H 104 H 104 H Respiratory Rate 18 18 18 Blood Pressure Blood Pressure [Le ft Arm] 132/75 141/84 H 156/82 H Pulse Oximetry 84 L 92 92 Oxygen Delivery Me thod Room Air Room Air Nasal Cannula Oxygen Flow Rate 1 1 06/09/23 13:15 06/09/23 13:30 06/09/23 14:00 Temperature Pulse Rate Pulse Rate [Pulse Oximeter] 104 H 101 H 100 Respiratory Rate 18 18 18 Blood Pressure Blood Pressure [Le ft Arm] 151/79 H 149/89 H 134/93 H Pulse Oximetry 93 93 94 Oxygen Delivery Me thod Nasal Cannula Nasal Cannula Nasal Cannula Oxygen Flow Rate 1 1 1 06/09/23 14:31 06/09/23 15:00 06/09/23 15:30 Temperature 97.5 F L Pulse Rate Pulse Rate [Pulse Oximeter] 97 103 H Respiratory Rate 18 18 18 Blood Pressure Blood Pressure [Le ft Arm] 139/82 142/86 H Pulse Oximetry 93 94 Oxygen Delivery Me thod Nasal Cannula Nasal Cannula Oxygen Flow Rate 1 1 06/09/23 16:30 06/09/23 17:30 Temperature 97.2 F L Pulse Rate Pulse Rate [Pulse Oximeter] 107 H 106 H Respiratory Rate 18 18 Blood Pressure Blood Pressure [Le ft Arm] 140/83 H 176/106 H Pulse Oximetry 94 92 Oxygen Delivery Me thod Nasal Cannula Nasal Cannula Oxygen Flow Rate 1 1 Assessment and Plan Assessment and plan (1) Osteoarthritis of right shoulder: Status: Acute (2) Status post reverse total replacement of right shoulder: Problem comment: 06/09/2023, Dr. Stringer Status: Acute (3) Status post reverse total replacement of left shoulder: Problem comment: 10/30/2020, Dr. Stringer Status: Acute (4) High blood pressure: Problem comment: Will resume her antihypertensive medications. Status: Acute (5) Elevated cholesterol: Problem comment: Will resume her lipid-lowering medications. Status: Acute Plan 1. Reviewed impression with patient. 2. Will follow with Orthopedic surgery while they deemed the patient needs to be in the hospital. 3. Completed hospitalist portion of discharge order. 4. Patient agreeable with above stated plan recommendations.
--- NOTE | 2023-06-09 23:56 | PC.NURSE ---
Shift Note: Pt friendly and cooperative, BP's hypertensive, but VS otherwise WNL. Afebrile. Pain 3/10 and well controlled with Tylenol and PRN Oxy at HS. Surgical dressing to right shoulder C,D,&I with active ice as tolerated. Radial pulse intact, cap refill less than 3 seconds, and fingers of right hand warm to touch. Moving well with assist x1 and needed minimal assistance with ADL's.
[2023-06-10] MEDS: CEFAZOLIN 2 GM in 0.9 % SODIUM CHLORIDE Mini-bag 100 ML IVPB (00:29)
[2023-06-10] MEDS: OXYCODONE 5 MG TABLET PO ×2 (01:57→08:05)
--- NOTE | 2023-06-10 06:46 | PC.NURSE ---
End of shift report [id number]: Pleasant and cooperative with cares. Pain to right shoulder well managed with scheduled and prn medications as well as ice and sling for positioning. Transfers and ambulates with SBA. O2 at 1L per NC overnight to maintain sats >90%, per patient she believes she has sleep apnea and has an appointment for a sleep study scheduled.
[2023-06-10] MEDS: OMEPRAZOLE 20 MG CAPSULE DR 40 MG PO (06:57)
[2023-06-10 07:00] VITALS: BP 161/81; PULSE 88; PULSE 96; RESP 20; TEMP 35.8; O2SAT 96
[2023-06-10 07:26] LABS: Hematocrit 34.7 % (33.0-51.0); Hemoglobin* 11.2 gm/dL (12.0-16.0); Mean Corpuscular HGB Conc 32 gm/dL (32-36); Mean Corpuscular Hemoglobin 30 pg (26-34); Mean Corpuscular Volume 93 fL (80-100); Platelet Count* 168 K/uL (140-440); Red Blood Count 3.74 m/uL (4.00-5.20); White Blood Count* 8.08 K/uL (4.50-11.00)
[2023-06-10 07:37] LABS: Slide Review Reflex No
[2023-06-10 07:41] LABS: Potassium* 4.2 mmol/L (3.6-5.1); Sodium* 137 mmol/L (135-149)
[2023-06-10 07:44] LABS: Blood Urea Nitrogen* 21 mg/dL (7-30); Creatinine* 0.9 mg/dL (0.5-1.5); Est. Creatinine Clearance* 62.72; Estimated Glomerular Filt Rate 65 ml/min
[2023-06-10] MEDS: SENNOSIDES 1 TAB TABLET 2 TAB PO (08:03)
[2023-06-10] MEDS: hydroCHLOROthiazide 12.5 MG CAPSULE PO (08:04)
[2023-06-10] MEDS: LOSARTAN POTASSIUM 50 MG TABLET 100 MG PO (08:04)
[2023-06-10] MEDS: VENLAFAXINE ER 75 MG CAPSULE 150 MG PO (08:04)
[2023-06-10] MEDS: ACETAMINOPHEN 500 MG TABLET 1000 MG PO (08:04)
--- NOTE | 2023-06-10 08:25 | PM.ORPN ---
Subjective Subjective Time Seen by Provider: 07:10 Date Seen: 06/10/23 Principal diagnosis: Status post right reverse shoulder replacement Interval history: Jacqui is comfortable this morning. She does not have pain in her right shoulder. She is able to move her fingers and wrist and has normal sensation in her fingers this morning. She is in a sling. Ice pack is applied. She will discharge to home today. Ortho Exam Narrative Exam Narrative: Alert and oriented x3. Patient is in no acute distress. Converses without labored breathing. Hearing is grossly intact. Ambulates with a normal gait. Examination the right upper extremity shows ecchymosis is present. The dressing is intact. No erythema or drainage or sign of infection. Very minimal soft tissue edema about the right shoulder. She is able to flex and extend her fingers, extend and flex her wrist. Sensation is normal in her fingers. Const Vital Signs, click to edit/add: Vital Signs - 24 hr 06/09/23 08:40 06/09/23 08:45 06/09/23 08:50 Temperature 98.0 F Pulse Rate 79 79 81 Pulse Rate [Pulse Oximeter] Respiratory Rate 16 16 16 Blood Pressure 177/89 H 177/90 H 165/77 H Blood Pressure [Left Arm] Pulse Oximetry 95 95 92 Oxygen Delivery Method Room Air Nasal Cannula Nasal Cannula Oxygen Flow Rate 2 2 06/09/23 11:20 06/09/23 11:25 06/09/23 11:30 Temperature 97.2 F L Pulse Rate 118 H 117 H 119 H Pulse Rate [Pulse Oximeter] Respiratory Rate 20 22 25 H Blood Pressure 115/86 165/85 H 168/95 H Blood Pressure [Left Arm] Pulse Oximetry 95 95 93 Oxygen Delivery Method Nasal Cannula Oxygen Flow Rate 3 06/09/23 11:35 06/09/23 11:40 06/09/23 11:45 Temperature Pulse Rate 113 H 109 H 112 H Pulse Rate [Pulse Oximeter] Respiratory Rate 18 18 18 Blood Pressure 182/89 H 157/95 H 151/71 H Blood Pressure [Left Arm] Pulse Oximetry 94 94 94 Oxygen Delivery Method Oxygen Flow Rate 06/09/23 11:50 06/09/23 11:55 06/09/23 11:55 Temperature 97.3 F L 97.0 F L 97.0 F L Pulse Rate 112 H 110 H Pulse Rate [Pulse Oximeter] 104 H Respiratory Rate 20 18 18 Blood Pressure 162/69 H Blood Pressure [Left Arm] 154/89 H 154/89 H Pulse Oximetry 93 93 Oxygen Delivery Method Nasal Cannula Room Air Room Air Oxygen Flow Rate 3 06/09/23 12:19 06/09/23 12:30 06/09/23 12:46 Temperature 97.0 F L 97.0 F L Pulse Rate Pulse Rate [Pulse Oximeter] 105 H 104 H 104 H Respiratory Rate 18 18 18 Blood Pressure Blood Pressure [Left Arm] 132/75 141/84 H 156/82 H Pulse Oximetry 84 L 92 92 Oxygen Delivery Method Room Air Room Air Nasal Cannula Oxygen Flow Rate 1 1 06/09/23 13:15 06/09/23 13:30 06/09/23 14:00 Temperature Pulse Rate Pulse Rate [Pulse Oximeter] 104 H 101 H 100 Respiratory Rate 18 18 18 Blood Pressure Blood Pressure [Left Arm] 151/79 H 149/89 H 134/93 H Pulse Oximetry 93 93 94 Oxygen Delivery Method Nasal Cannula Nasal Cannula Nasal Cannula Oxygen Flow Rate 1 1 1 06/09/23 14:31 06/09/23 15:00 06/09/23 15:30 Temperature 97.5 F L Pulse Rate Pulse Rate [Pulse Oximeter] 97 103 H Respiratory Rate 18 18 18 Blood Pressure Blood Pressure [Left Arm] 139/82 142/86 H Pulse Oximetry 93 94 Oxygen Delivery Method Nasal Cannula Nasal Cannula Oxygen Flow Rate 1 1 06/09/23 16:30 06/09/23 17:30 06/09/23 23:00 Temperature 97.2 F L Pulse Rate Pulse Rate [Pulse Oximeter] 107 H 106 H 97 Respiratory Rate 18 18 22 Blood Pressure Blood Pressure [Left Arm] 140/83 H 176/106 H Pulse Oximetry 94 92 Oxygen Delivery Method Nasal Cannula Nasal Cannula Oxygen Flow Rate 1 1 06/09/23 23:00 06/09/23 23:00 06/10/23 07:00 Temperature 97.7 F Pulse Rate Pulse Rate [Pulse Oximeter] 97 Respiratory Rate 22 22 Blood Pressure Blood Pressure [Left Arm] 196/92 H Pulse Oximetry 97 97 96 Oxygen Delivery Method Nasal Cannula Nasal Cannula Room Air Oxygen Flow Rate 1 1 06/10/23 07:00 06/10/23 07:00 Temperature 96.4 F L Pulse Rate Pulse Rate [Pulse Oximeter] 96 88 Respiratory Rate 20 20 Blood Pressure Blood Pressure [Left Arm] 161/81 H Pulse Oximetry 96 Oxygen Delivery Method Room Air Oxygen Flow Rate Assessment and Plan Assessment and plan (1) Status post reverse total replacement of right shoulder: Problem details: 06/09/2023, Dr. Stringer Status: Acute Assessment and Plan: Plan for discharge is to home when they meet discharge criteria. Patient will wear the sling for 6 weeks post surgery. They can take it off for comfort and for exercises. Activity: no external rotation of the operative shoulder past 0? x 6 weeks. Forward flexion and abduction of the shoulder is allowed as tolerated. They will work on range of motion of the elbow, wrist, fingers once the block has wore off on the operative extremity. Patient will begin physical therapy for the operative shoulder next week. For discharge, oxycodone and Tylenol for pain. Do not drive while on narcotic pain medication. Drive only when safe to do so, when they have normal use/function of the upper extremity, this will likely take 6 weeks. Patient will minimize and discontinue the narcotic as soon as possible. Remove dressing in 1 week. Dressing is waterproof. May shower. Surgical glue covers the wound. Do not scrub the wound. Expect swelling and bruising about the shoulder and upper extremity. Use of ice/active ice without restriction. Notify Orthopedics his swelling is excessive. notify Orthopedics with any questions or concerns. [phone] Return to Orthopedic clinic next week for a wound check Return to clinic in [address] Stringer. Oxycodone and senna has been sent to her pharmacy. She has acetaminophen listed on her home med list.
== END 2023-06-10 10:48 | disposition home or self-care (01) | DRG 483 ==
PROVIDERS: Admitting Provider Orthopaedic Surgery; PCP Internal Medicine; Visit Provider Orthopaedic Surgery
PROC: 0RRJ0JZ Replacement of Right Shoulder Joint with Synthetic Substitute, Open Approach (ICD-10-PCS; CPT 23472; principal; 2023-06-09 08:45)
DX: M75.101 Unspecified rotator cuff tear or rupture of right shoulder, not specified as traumatic (principal); G89.18 Other acute postprocedural pain; M19.011 Primary osteoarthritis, right shoulder; G47.30 Sleep apnea, unspecified; K21.9 Gastro-esophageal reflux disease without esophagitis; J44.9 Chronic obstructive pulmonary disease, unspecified; I10 Essential (primary) hypertension; E78.00 Pure hypercholesterolemia, unspecified; E66.01 Morbid (severe) obesity due to excess calories; Z68.38 Body mass index [BMI] 38.0-38.9, adult; R73.03 Prediabetes
CPT/HCPCS: 01638; 36415; 64415; 73030; 76942; 82565; 82962; 84132; 84295; 84520; 85027; 94761; 97110; 97116; 97161; 97165; 97535; 99100; A9270; C1713; C1776; J0330; J0690; J1100; J2250; J2371; J2405; J2704; J2795; J3010; J7120; L3670